=== PATIENT | female | born 1995 | race American Indian/Alaskan Native ===

== ENCOUNTER → 2021-11-16 | Outpatient (CLI) | payer MEDICAID | LOC: COL.RAD 07:08 | DX: K82.8 Other specified diseases of gallbladder (principal) ==

== ENCOUNTER 2022-01-22 02:04 | Inpatient (IN) | payer MEDICAID ==
[~2022-01-22] VITALS: Ht 172.7 cm; Wt 103.2 kg
[2022-01-22] VITALS (44 sets, daily range): BP systolic 94–139; BP diastolic 51–82; PULSE 53–85; TEMP 97.7–98.2
--- NOTE | 2022-01-22 02:10 | NUR ---
PT TO UNIT AMBULATORY WITH COMPLAINTS OF CONTRACTIONS THAT STARTED APPROXIMATELY 1 HOUR AGO. PT ORIENTED TO ROOM, CHANGED INTO GOWN, VS OBTAINED, EFMX2 APPLIED, SVE PERFORMED.
[2022-01-22 03:26] LABS: BASO % 0.1 % (0.0-2.0); EOS # 0.1 K/mm3 (0.0-0.7); EOS % 1.6 % (0.0-4.0); GRAN # 6.6 K/mm3 (1.4-6.5); GRAN % 73.1 % (42.2-75.2); HEMOGLOBIN 11.4 g/dl (12.5-16.0); LYMPH # 1.7 K/mm3 (1.2-3.4); LYMPH % 18.3 % (20.0-51.0); MEAN CELL VOLUME 90 fl (80.0-100.0); MEAN CORPUSCULAR HEMOGLOBIN 30 pg (27-31); MEAN CORPUSCULAR HGB CONC 33 g/dl (33.0-37.0); MEAN PLATELET VOLUME 9.8 fl (7.4-10.4); MONO # 0.5 K/mm3 (0.1-0.6); MONO % 5.9 % (1.7-9.3); PLATELET COUNT 271 K/mm3 (130-400); RED BLOOD COUNT 3.84 M/mm3 (4.10-5.30)
[2022-01-22 03:29] LABS: HEMATOCRIT 34.4 % (37.0-47.0)
[2022-01-22 03:39] LABS: TRICYCLIC ANTIDEPRESS URINE NEGATIVE
--- NOTE | 2022-01-22 03:50 | NUR ---
0350 SITTING UP FOR EPID PLACEMENT. 0357 EPID DOSED. SEE ANESTHSIA RECORD FOR MORE INFORMATION. PT VERY COMFORTABLE DURING EPID PLACEMENT. NO C/O CONTRACTIONS.
[2022-01-22] MEDS ORDERED: PRENATAL TABLET PO (05:15)
--- NOTE | 2022-01-22 13:00 | NUR ---
1250- Dr. Hendrickson at the bedside. SVE done complete. 1252- Christina removed. Pushing instructions reviewed. Pt set up for delivery. 1255- Pushing started. 1300- of viable male . [place] placed on mom's abdomen. Care of the given to nursery RN at the bedside. Cords clamped and cut. 1307- of placenta. Pitocin started at 333ml/hr per order and protocol. Fundus firm and lochia WNL.
--- NOTE | 2022-01-22 15:50 | NUR ---
Pt up to the bathroom with stand-by assist and without complications. Pt was able to void. Heather-care done. Pt transferred to room 219 ambulatory. Oriented to room, bed and call light within reach. Plan of care reviewed with pt and .
[2022-01-23 00:15] VITALS: BP 111/73; PULSE 77; TEMP 97.8
[2022-01-23 03:32] VITALS: BP 112/76; PULSE 67; TEMP 97.9
[2022-01-23] MEDS ORDERED: IBU600 MG PO (08:59)
[2022-01-23 09:00] VITALS: BP 122/71; PULSE 64; TEMP 97.9
--- NOTE | 2022-01-23 10:05 | NUR ---
Initial visit; Parents thanked [employer] for offering congratulations and God's blessings for the of their son. [facility] thanked family for choosing [place].
== END 2022-01-23 16:25 | disposition home or self-care (01) | DRG 807 ==
LOC: LDRO 02:04 → LDR 02:39 → OB 16:10
PROVIDERS: ADMIT Obstetrics & Gynecology
PROC: 10E0XZZ Delivery of Products of Conception, External Approach (ICD-10-PCS; principal; 2022-01-22)
PROC: 10907ZC Drainage of Amniotic Fluid, Therapeutic from Products of Conception, Via Natural or Artificial Opening (ICD-10-PCS; 2022-01-22)
PROC: 0UQMXZZ Repair Vulva, External Approach (ICD-10-PCS; 2022-01-22)
DX: O99.344 Other mental disorders complicating childbirth (principal); Z37.0 Single live birth; F32.A Depression, unspecified; O70.0 First degree perineal laceration during delivery; Z3A.39 39 weeks gestation of pregnancy
CPT/HCPCS: J2590; J7120

== ENCOUNTER 2024-06-30 08:31 | Day surgery (SDC) | payer MEDICAID ==
[~2024-06-30] VITALS: Ht 172.7 cm; Wt 96.6 kg
[~2024-06-30 08:31] MED LIST: IBU600 MG PO; LR 1,000 ML IV SCH; Ondansetron 4 MG/2 ML VIAL IV PRN; PRENATAL TABLET PO
[2024-06-30] MEDS ORDERED: Lidocaine PF 2% (20 MG/ML) 5 ML VIAL ONE (09:47)
[2024-06-30] MEDS ORDERED: Glycopyrrolate 0.2 MG/ML 1 ML VIAL ONE (09:50)
[2024-06-30 10:15] VITALS: BP 107/76; PULSE 54; TEMP 97
--- NOTE | 2024-06-30 10:15 | NUR ---
PATIENT AMBULATED TO CHAIR WITH STEADY GAIT, ASSIST OF 2. PATIENT IS DROWSY AND REQUESTED TO REST IN CHAIR. DENIES PAIN, NAUSEA AND SHORTNESS OF BREATH. BREATHING REGULAR AND UNLABORED ON ROOM AIR. SKIN WARM AND DRY. IV IN PLACE. NURSE HANDOFF COMPLETED IN ROOM. SEE CHART FOR VITAL SIGNS. CALL LIGHT IN REACH.
--- NOTE | 2024-06-30 10:22 | NUR ---
PATIENT ALERT AND ORIENTED X3. PATIENT HAD WATER AND A MUFFIN. BOTH TOLERATED WELL. CALL LIGHT IN REACH.
[2024-06-30 10:29] VITALS: BP 103/85; PULSE 64; TEMP 97.2
[2024-06-30 10:30] VITALS: BP 92/59; PULSE 58
[2024-06-30 10:45] VITALS: BP 90/51; PULSE 54
[2024-06-30 11:00] VITALS: BP 104/63; PULSE 58
--- NOTE | 2024-06-30 11:35 | NUR ---
1105: DISCHARGE TEACHING COMPLETED WITH PRINTED EDUCATION AND INSTRUCTIONS SENT HOME WITH PATIENT. PATIENT VERBALIZED UNDERSTANDING OF TEACHING. 1108: MET WITH PATIENT TO DISCUSS PROCEDURE. 1109: IV REMOVED. GAUZE AND COBAN PLACED OVER SITE. 1135: PATIENT DISCHARGED HOME WITH [facility].
== END 2024-06-30 11:35 | disposition home or self-care (01) ==
LOC: SDCO 08:31
DX: K64.0 First degree hemorrhoids (principal); K92.1 Melena; R19.7 Diarrhea, unspecified
CPT/HCPCS: J2704; J7120